=== PATIENT | male | born 1980 | race Caucasian/White ===

== ENCOUNTER 2024-06-16 11:06 | Emergency (ER) | payer OTHER ==
[2024-06-16 11:15] VITALS: BP 135/84; PULSE 67; RESP 18; TEMP 98.2; BMI 22.8
[2024-06-16] MEDS ORDERED: DIPHTH,PERTUSS(ACELL),TET 0.5 ML DISP.SYRIN IM ONE (11:34)
[2024-06-16] MEDS ORDERED: ACETAMINOPHEN 325 MG TABLET (FP) ONE (11:34)
[2024-06-16] MEDS: DIPHTH,PERTUSS(ACELL),TET 0.5 ML DISP.SYRIN IM ONE (11:35)
[2024-06-16] MEDS: ACETAMINOPHEN 325 MG TABLET (FP) PO ONE (11:36)
[2024-06-16] MEDS: BACITRACIN ZINC 15 GM TUBE TOPICAL OINTMENT TP ONE (11:36)
== END 2024-06-16 12:25 | disposition home or self-care (01) ==
LOC: FER 11:06
PROC: 3E0234Z Introduction of Serum, Toxoid and Vaccine into Muscle, Percutaneous Approach (ICD-10-PCS; principal; 2024-06-16)
DX: S00.81XA Abrasion of other part of head, initial encounter (principal); S50.311A Abrasion of right elbow, initial encounter; W17.81XA Fall down embankment (hill), initial encounter; Z23 Encounter for immunization
CPT/HCPCS: 90715; 99284-25